=== PATIENT | male | born 1950 | race Hispanic/Latino ===

== ENCOUNTER → 2018-01-06 | Outpatient (CLI) | payer MEDICARE | END | disposition home or self-care (01) | LOC: SHCH 16:05 | PROVIDERS: ATTEND Internal Medicine Cardiovascular Disease | DX: I11.0 Hypertensive heart disease with heart failure (principal); I50.22 Chronic systolic (congestive) heart failure; I48.0 Paroxysmal atrial fibrillation | CPT/HCPCS: 93306 ==

== ENCOUNTER 2018-12-04 08:24 | Day surgery (SDC) | payer MEDICARE ==
[2018-12-03 12:00] VITALS: BP 137/80
[2018-12-03 12:23] LABS: EOSINOPHILS % (AUTO) 1.7 % (0.0-8.0); HEMATOCRIT 40.2 % (42-54); LYMPHOCYTES % (AUTO) 19.1 % (21.0-51.0); MEAN CORPUSCULAR HEMOGLOBIN 28.8 pg (27.0-33.0); MEAN CORPUSCULAR HGB CONC 33.3 g/dL (32.0-36.0); MEAN CORPUSCULAR VOLUME 86.2 fL (79-99); MONOCYTES % (AUTO) 7.8 % (3.0-13.0); NEUTROPHILS % (AUTO) 70.4 % (40.0-77.0); NUCLEATED RED BLOOD CELLS 0.1 % (0.0-0.19); PLATELET COUNT (AUTO) 197 K/uL (130-400); RED BLOOD CELL COUNT(AUTO) 4.66 MIL/uL (4.50-6.20); RED CELL DISTRIBUTION WIDTH 14.6 % (11.0-15.5); WHITE BLOOD COUNT (AUTO) 6.3 K/uL (4.8-10.8)
[2018-12-03 12:30] LABS: CREATININE 1.4 mg/dL (0.5-1.5); POTASSIUM 4.7 mmol/L (3.5-5.1)
[2018-12-03 12:31] LABS: PARTIAL THROMBOPLASTIN TIME 33.1 SEC (26.3-35.5); PROTHROMBIN TIME 10.5 SEC (9.6-11.6)
[~2018-12-04] VITALS: Ht 175.3 cm; Wt 112.2 kg
[2018-12-04] VITALS (8 sets, daily range): BP systolic 93–130; BP diastolic 63–98
[~2018-12-04 08:24] MED LIST: AMLO5TAB9 PO; ASPI-1026 PO; CARV25TA PO; CEFAZOLIN SODIUM 1 GM VIAL IVP SCH; EPLE25TA10 PO; FURO40TA5 PO; GLIP1TAB5 PO; POTA-79 PO; SIMV20TA6 PO; SODIUM CHLORIDE 0.9% 1000ML 1,000 ML IV SCH; VALS1TAB79 PO
--- NOTE | 2018-12-04 08:51 | NUR ---
PATIENT ARRIVED PATIENT ARRIVED TO DAY PATIENT ACCOMPANIED BY SPOUSE (VOLODYMYR). PATIENT AAOX3, RESPIRATIONS UNLABORED, VITAL SIGNS STABLE, DENIES ANY PAIN AT THIS TIME. PROCEDURE CONFIRMED/VERIFIED AND EXPLAINED TO PATIENT AND SPOUSE. HOSPITAL ROUTINE EXPLAINED TO PATIENT AND SPOUSE. ALL QUESTIONS/CONCERNS ADDRESSED.
--- NOTE | 2018-12-04 09:30 | NUR ---
PATIENT TRANSFERRED PT TAKEN TO COAL GASIFICATION TECHNICIAN VIA BED BY EHSAN CARDOZA RN. INSTRUCTED TO WAIT IN ROOM IN ORDER TO SPEAK WITH DR HA AFTER PROCEDURE COMPLETE. VERBALIZED UNDERSTANDING.
[2018-12-04] MEDS ORDERED: CEFAZOLIN SODIUM 1 GM VIAL ONE (09:41)
[2018-12-04] MEDS ORDERED: BUPIVACAINE/PF 0.25% 10ML VIAL IJ ONE (09:42)
[2018-12-04] MEDS ORDERED: MEPERIDINE-PF 50 MG/ML SYG ONE (09:42)
[2018-12-04] MEDS ORDERED: MIDAZOLAM HCL 1 MG/ML 2ML VIAL ONE (09:42)
[2018-12-04] MEDS ORDERED: LIDOCAINE HCL 1% MDV 50ML VIAL ONE (09:42)
[2018-12-04] MEDS ORDERED: TRAM50TA4 PO (11:24)
[2018-12-04] MEDS ORDERED: ACETAMINOPHEN-CODEINE 300/30MG TAB PO PRN (11:30)
--- NOTE | 2018-12-04 11:35 | NUR ---
PATIENT RETURNED PATIENT BROUGHT BACK FROM ASSISTANT BRANCH OPERATIONS MANAGER BY BRINA SIMPSON. PATIENT AAOX3, RESPIRATIONS UNLABORED, VITAL SIGNS STABLE. DRESSING TO LEFT UPPER CHEST WALL IS DRY AND INTACT, NO DRAINAGE OR BLEEDING NOTED. NO SWELLING NOTED, MILD REDNESS PRESENT TO AREA. SPOUSE IN ROOM WITH PATIENT.
--- NOTE | 2018-12-04 12:35 | NUR ---
HANDOFF REPORT HANDOFF COMMUNICATION GIVEN TO BRINA ROUSE USING SBAR. ALL QUESTIONS/CONCERNS ADDRESSED.
--- NOTE | 2018-12-04 12:50 | NUR ---
PT V/S STABLE DRESSING IS DRY AND INTACT. WILL CONTINUE TO MONITOR PT AND SITE.
--- NOTE | 2018-12-04 14:30 | NUR ---
PT V/S STABLE NO COMPLICATION, DRESSING IS DRY AND INTACT. PT GIVEN D/C INSTRUCTION TO CHANGE DRESSING DAILY X [address] SWEENEY. F/U AND RX SCRIPT GIVEN TO WATCH. PT. LEFT VIA WHEELCHAIR IN PVT CAR.
== END 2018-12-04 14:30 ==
LOC: DAH 08:24
PROVIDERS: ATTEND Internal Medicine Cardiovascular Disease
DX: Z45.02 Encounter for adjustment and management of automatic implantable cardiac defibrillator (principal); I11.0 Hypertensive heart disease with heart failure; I48.0 Paroxysmal atrial fibrillation; I50.22 Chronic systolic (congestive) heart failure; I48.91 Unspecified atrial fibrillation; G47.33 Obstructive sleep apnea (adult) (pediatric); I25.5 Ischemic cardiomyopathy; E78.5 Hyperlipidemia, unspecified; E11.9 Type 2 diabetes mellitus without complications; F32.9 Major depressive disorder, single episode, unspecified; Z79.84 Long term (current) use of oral hypoglycemic drugs; Z79.899 Other long term (current) drug therapy; Z79.82 Long term (current) use of aspirin; Z98.890 Other specified postprocedural states; Z95.5 Presence of coronary angioplasty implant and graft; Z82.49 Family history of ischemic heart disease and other diseases of the circulatory system; Z83.3 Family history of diabetes mellitus
CPT/HCPCS: 33264; 36415; 80048; 82948 ×2; 85025; 85610; 85730; 87070; 87076; 93005; A4215; A4216; A4221; A4222; A4223 ×3; A4606; C1882; J0690; J2175; J2250; J3490 ×2; J7030; 99152; 99153; 99156; 99157

== ENCOUNTER → 2020-11-10 | Outpatient (CLI) | payer MEDICARE ==
[~2020-11-10] MED LIST changes: +AMLO-257 PO; -AMLO5TAB9 PO; -CEFAZOLIN SODIUM 1 GM VIAL IVP SCH; +SIMV-43 PO; -SIMV20TA6 PO; -SODIUM CHLORIDE 0.9% 1000ML 1,000 ML IV SCH; +TRAM50TA4 PO; -VALS1TAB79 PO; +VALS1TAB80 PO
== END | disposition home or self-care (01) ==
LOC: SHCH 09:09
PROVIDERS: ATTEND Internal Medicine Cardiovascular Disease
DX: I48.0 Paroxysmal atrial fibrillation (principal); I50.22 Chronic systolic (congestive) heart failure
CPT/HCPCS: 93306

== ENCOUNTER → 2022-11-28 | Outpatient (CLI) | payer MEDICARE ==
[~2022-11-28] MED LIST changes: +POTA-364 PO; -POTA-79 PO
[2022-11-28 12:33] LABS: CREATININE 1.2 mg/dL (0.5-1.5); POTASSIUM 4.8 mmol/L (3.5-5.1)
== END | disposition home or self-care (01) ==
LOC: LAB 11:11
PROVIDERS: ATTEND Internal Medicine Cardiovascular Disease
DX: I50.22 Chronic systolic (congestive) heart failure (principal); R53.83 Other fatigue; G47.10 Hypersomnia, unspecified
CPT/HCPCS: 36415; 80048; 83880

== ENCOUNTER → 2023-03-27 | Outpatient (CLI) | payer MEDICARE | END | disposition home or self-care (01) | LOC: LAB 09:20 | PROVIDERS: ATTEND Internal Medicine Cardiovascular Disease | DX: E55.9 Vitamin D deficiency, unspecified (principal) | CPT/HCPCS: 82306 ==

== ENCOUNTER → 2023-06-11 | Outpatient (CLI) | payer MEDICARE ==
[~2023-06-11] MED LIST changes: -POTA-364 PO; +POTA-79 PO
[2023-06-11 12:55] LABS: CREATININE 1.1 mg/dL (0.5-1.3); POTASSIUM 4.3 mmol/L (3.5-5.1)
== END | disposition home or self-care (01) ==
LOC: LAB 08:58
PROVIDERS: ATTEND Internal Medicine Cardiovascular Disease
DX: I71.21 Aneurysm of the ascending aorta, without rupture (principal)
CPT/HCPCS: 36415; 80048

== ENCOUNTER → 2023-06-18 | Outpatient (CLI) | payer MEDICARE ==
[~2023-06-18] MED LIST changes: +IOHEXOL 350 MG/ML 100ML INFUS..BTL IV ONE
== END | disposition home or self-care (01) ==
LOC: RAH 09:43
PROVIDERS: ATTEND Internal Medicine Cardiovascular Disease
DX: I71.21 Aneurysm of the ascending aorta, without rupture (principal); I70.0 Atherosclerosis of aorta
CPT/HCPCS: 71275; Q9967

== ENCOUNTER → 2023-10-27 | Outpatient (CLI) | payer MEDICARE ==
[~2023-10-27] MED LIST changes: -EPLE25TA10 PO; +EPLE25TA11 PO; -IOHEXOL 350 MG/ML 100ML INFUS..BTL IV ONE; +POTA-364 PO; -POTA-79 PO
== END | disposition home or self-care (01) ==
LOC: LAB 08:42
PROVIDERS: ATTEND Internal Medicine Cardiovascular Disease
DX: I50.22 Chronic systolic (congestive) heart failure (principal); M62.81 Muscle weakness (generalized); Z79.899 Other long term (current) drug therapy
CPT/HCPCS: 36415; 82306; 83735; 83880

== ENCOUNTER → 2024-04-05 | Outpatient (CLI) | payer MEDICARE ==
[~2024-04-05] MED LIST changes: -EPLE25TA11 PO; +EPLE25TA24 PO
[2024-04-05 12:44] LABS: ALBUMIN 3.5 g/dL (3.5-5.0); BILIRUBIN,TOTAL 0.7 mg/dL (0.2-1.0); CREATININE 1.2 mg/dL (0.5-1.3); POTASSIUM 4.3 mmol/L (3.5-5.1); TOTAL PROTEIN, SERUM 7.1 g/dL (6.0-8.3)
== END | disposition home or self-care (01) ==
LOC: LAB 11:23
PROVIDERS: ATTEND Internal Medicine Cardiovascular Disease
DX: I11.0 Hypertensive heart disease with heart failure (principal); I50.9 Heart failure, unspecified; G47.33 Obstructive sleep apnea (adult) (pediatric); E78.5 Hyperlipidemia, unspecified; E66.9 Obesity, unspecified; Z68.33 Body mass index [BMI] 33.0-33.9, adult
CPT/HCPCS: 36415; 80053; 80061; 83880